=== PATIENT | female | born 1945 | race Caucasian/White ===

== ENCOUNTER 2022-03-07 12:42 | Outpatient (CLI) | payer MEDICARE, OTHER | END 2022-03-07 12:43 | disposition home or self-care (01) | LOC: CSHMAMMO 12:42 | PROVIDERS: ATTEND Internal Medicine | DX: Z12.31 Encounter for screening mammogram for malignant neoplasm of breast (principal) | CPT/HCPCS: 77063; 77067 ==

== ENCOUNTER 2022-12-07 07:10 | Outpatient (CLI) | payer MEDICARE ==
[2022-12-07] MEDS ORDERED: Sodium Bicarbonate 2.5 MEQ/5 ML VIAL ONE (07:31)
[2022-12-07] MEDS ORDERED: Lidocaine 1% PF 5 ML VIAL ONE (07:31)
[2022-12-07] MEDS ORDERED: Iopamidol-M 200 41% 10 ML VIAL FS ONE (15:29)
== END 2022-12-07 09:30 | disposition home or self-care (01) ==
LOC: CSHRAD 07:10
PROVIDERS: ATTEND Neurological Surgery
DX: M43.16 Spondylolisthesis, lumbar region (principal); M47.816 Spondylosis without myelopathy or radiculopathy, lumbar region
CPT/HCPCS: 62304; 72132; Q9966